=== PATIENT | female | born 2000 | race Two or more races ===

== ENCOUNTER 2024-04-22 08:43 | Emergency (ER) | payer OTHER ==
[~2024-04-22] VITALS: Ht 165.1 cm; Wt 61.2 kg
[2024-04-22] MEDS ORDERED: HUMIRA40 MG/0.2 SQ (08:46)
[2024-04-22] MEDS ORDERED: PEPCID AC10 MG PO (08:47)
[2024-04-22] MEDS ORDERED: ONDANSETRON HCL 2 MG/ML VIAL ONE (09:14)
[2024-04-22] MEDS ORDERED: FAMOTIDINE/PF 20 MG/2 ML VIAL ONE (09:14)
[2024-04-22] MEDS ORDERED: FAMOtidine 10 MG/ML (4ML VIAL) IV ONE (09:15)
[2024-04-22] MEDS ORDERED: ONDANSETRON HCL 2 MG/ML VIAL IV ONE (09:15)
[2024-04-22 09:39] LABS: HEMATOCRIT 34.1 % (36.0-45.00); HEMOGLOBIN 11.2 g/dL (12.0-15.00); MEAN CELL VOLUME 82.2 fL (80.00-100.00); MEAN CORPUSCULAR HGB CONC 32.8 g/dl (32.0-36.0); PLATELET COUNT 293 K/uL (150-450); RED BLOOD COUNT 4.15 M/uL (4.00-6.00)
[2024-04-22 09:58] LABS: INR 1.09; PARTIAL THROMBOPLASTIN TIME 29.2 SECONDS (22.0-34.0); PROTHROMBIN TIME 11.8 SECONDS (9.0-11.5)
[2024-04-22 10:19] LABS: PH,URINE 5.5 (5.0-8.0); URINE APPEARANCE Clear; URINE BILIRRUBIN Negative (NEGATIVE); URINE BLOOD Negative; URINE COLOR Yellow; URINE GLUCOSE Negative (NEGATIVE); URINE KETONE Negative (NEGATIVE); URINE LEUKOCYTE Negative; URINE NITRATE Negative; URINE PROTEIN Negative (NEGATIVE); URINE UROBILINOGEN 0.2 E.U./dl
[2024-04-22 10:19] LABS: ALBUMIN 3.7 gm/dL (3.4-5.0); ALKALINE PHOSPHATASE 71 U/L (50-136); ALT/SGPT 15 U/L (12-78); ANION GAP 8 (10.0-20.0); AST/SGOT 15 U/L (15-37); BILIRUBIN TOTAL 0.21 mg/dL (0.3-1.2); BLOOD UREA NITROGEN 12 mg/dL (7-18); BUN CREA RATIO 19 (7.0-25.0); CALCIUM 9.4 mg/dL (8.5-10.1); CARBON DIOXIDE 27 mEq/L (21-32); CHLORIDE 108 mmol/L (98-107); CREATININE SERUM 0.62 mg/dL (0.55-1.02); GFR 119.28; GLOBULINA 4.4 G/DL (2.4-3.5); GLUCOSE FASTING 82 mg/dL (65-100); HCG QUANTITATIVE < 1 mUI/mL (1-3); OSMOLALITY SERUM 276 MOSM/KG (275-295); POTASSIUM 4.01 mEq/L (3.5-5.1); SODIUM 139 mmol/L (136-145); TOTAL PROTEIN 8.1 gm/dL (6.4-8.2)
[2024-04-22 10:33] LABS: URINE BACTERIA 129.7 uL (0.0-1933); URINE EPITHELIAL CELLS 11.2 uL (0.0-38.8); URINE RBC 6.1 uL (0.0-20.8); URINE WBC 8.8 uL (0.0-23.2)
[2024-04-22] MEDS ORDERED: KETOROLAC TROMETHAMINE 60 MG VIAL IM ONE (11:00)
[2024-04-22] MEDS ORDERED: KETOROLAC TROMETHAMINE 30 MG VIAL ONE (11:01)
[2024-04-22] MEDS ORDERED: PEPCID AC20 MG PO (13:07)
[2024-04-22] MEDS ORDERED: PYRIDIUM DS200 MG PO (13:07)
[2024-04-22] MEDS ORDERED: BACTRIM DS TAB1 EACH PO (13:07)
[2024-04-22] MEDS ORDERED: CEFTRIAXONE SODIUM 1,000 MG VIAL ONE (13:13)
[2024-04-22] MEDS ORDERED: CEFTRIAXONE SODIUM 1,000 MG VIAL IV ONE (13:15)
== END 2024-04-22 13:22 | disposition home or self-care (01) ==
LOC: ER 08:45
PROVIDERS: General Practice
DX: R11.2 Nausea with vomiting, unspecified (principal); K50.90 Crohn's disease, unspecified, without complications; N39.0 Urinary tract infection, site not specified